=== PATIENT | male | born 1950 | race Caucasian/White ===

== ENCOUNTER → 2020-02-21 10:04 | Outpatient (CLI) | payer MEDICARE, SELFPAY ==
[2020-02-21 12:20] LABS: BUN Creatinine Ratio 16.7 (6-22); Blood Urea Nitrogen 16 mg/dL (9-20); Estimated Glomerular Filt Rate > 60.0 mL/min (>60)
[2020-02-21 13:37] LABS: Add Manual Diff / Slide Review NO; Basophils Absolute Auto 0 /uL (0-100); Basophils Percent Auto 0.2 % (0-2); Eosinophils Absolute Auto 100 /uL (0-450); Eosinophils Percent Auto 1.2 % (2-4); Hematocrit 49.3 % (41-53); Hemoglobin 16.4 g/dL (13.5-17.5); Lymphocytes Absolute Auto 1400 /uL (1100-4500); Lymphocytes Percent Auto 20.9 % (25-40); Mean Corpuscular HGB Conc 33.2 % (30-36); Mean Corpuscular Hemoglobin 30.1 PG (26-34); Mean Corpuscular Volume 90.6 fL (80-100); Monocytes Absolute Auto 600 /uL (0-900); Monocytes Percent Auto 9.2 % (3-14); Neutrophils Absolute Auto 4600 /uL (1500-7000); Neutrophils Percent Auto 68.5 % (50-75); Platelet Count 368 X10^3/uL (150-400); Red Blood Cell Count 5.44 X10^6/uL (4.5-5.9); Red Cell Distribution Width 14.3 % (11.6-14.8); White Blood Cell Count 6.7 X10^3/uL (4.5-11.0)
[2020-02-21 14:18] LABS: Alanine Aminotransferase 61 IU/L (<50); Albumin 4.8 g/dL (3.5-5.0); Albumin Globulin Ratio 1.7 (1.0-2.8); Alkaline Phosphatase 64 U/L (38-126); Aspartate Aminotransferase 44 IU/L (17-59); Bilirubin Total 0.9 mg/dL (0.2-1.3); Blood Urea Nitrogen 15 mg/dL (9-20); Calcium 9.3 mg/dL (8.4-10.2); Carbon Dioxide 26 mmol/L (22-32); Chloride 100 mmol/L (98-107); Estimated Glomerular Filt Rate > 60.0 mL/min (>60); Globulin 2.8 g/dL (1.7-4.1); Glucose 102 mg/dL (80-110); HEMOLYSIS < 15 (0-50); Lipase 208 U/L (23-300); Sodium 136 mmol/L (137-145); Total Protein 7.6 g/dL (6.3-8.2)
[2020-02-21 14:28] LABS: Clostridium Difficile Tox PCR Negative for C. diff
[2020-02-23 13:18] LABS: Fats, Neutral Normal (.); Fats, Total Normal (.)
== END ==
PROVIDERS: Referring Provider Internal Medicine; Visit Provider Internal Medicine
DX: R10.10 Upper abdominal pain, unspecified (principal); R63.4 Abnormal weight loss; R19.4 Change in bowel habit; R19.7 Diarrhea, unspecified
CPT/HCPCS: 36415; 80053; 82565; 82705; 83690; 84520; 85025; 87045; 87177; 87205; 87329; 87493; 87899

== ENCOUNTER → 2020-02-21 12:24 | Outpatient (CLI) | payer MEDICARE, SELFPAY ==
--- NOTE | 2020-02-21 | DI.CT.S_ITS ---
PROCEDURE: CT ABDOMEN PELVIS W CON INDICATIONS: Upper abdominal pain, unspecified TECHNIQUE: After the administration of oral and intravenous contrast, 5 mm thick sections acquired from the diaphragms to the symphysis. 5 mm thick coronal and sagittal reformats were performed. For radiation dose reduction, the following was used: automated exposure control, adjustment of mA and/or kV according to patient size. COMPARISON: None. FINDINGS: Image quality: Excellent. ABDOMEN: Lung bases: Lung bases are clear. Heart size is normal. Solid organs: Liver is normal in size and enhancement. Gallbladder contains a gallstone. Biliary system is non-dilated. Pancreas enhances normally. Spleen is normal in size and enhancement. No adrenal nodules. Kidneys are normal in size and enhancement, without hydronephrosis. Peritoneum and bowel: Stomach, small bowel, and colon loops are normal in caliber and wall thickness. No free fluid or air. Nodes and vessels: No retroperitoneal or mesenteric adenopathy. Aorta and inferior vena cava are normal in caliber. Miscellaneous: No ventral hernias. PELVIS: Genitourinary: Bladder is mildly distended. Bladder wall thickness is normal. Miscellaneous: No inguinal hernias or adenopathy. Bones: No suspicious bony lesions. No vertebral body compression fractures. Degenerative changes are noted in lumbar spine. IMPRESSION: 1. Cholelithiasis. No CT findings to suggest acute cholecystitis. 2. Dictated by: Everett Branch M.D. on 02/21/2020 at 17:16 Approved by: Everett Branch M.D. on 02/21/2020 at 18:24
== END ==
PROVIDERS: Referring Provider Internal Medicine; Visit Provider Internal Medicine
DX: R10.10 Upper abdominal pain, unspecified (principal); R19.4 Change in bowel habit; R63.4 Abnormal weight loss; R19.7 Diarrhea, unspecified; K80.20 Calculus of gallbladder without cholecystitis without obstruction; N32.89 Other specified disorders of bladder; M47.816 Spondylosis without myelopathy or radiculopathy, lumbar region
CPT/HCPCS: 36415; 74177; 80053; 82565; 82705; 83690; 84520; 85025; 87045; 87177; 87205; 87329; 87493; 87899; Q9967

== ENCOUNTER 2023-09-26 17:06 | Emergency (ER) | payer MEDICARE, SELFPAY ==
[2023-09-26 17:11] VITALS: BP 118/78; PULSE 90; RESP 18; TEMP 37.2; O2SAT 98; BMI 26.6
--- NOTE | 2023-09-26 17:16 | DI.RAD.S_ITS ---
PROCEDURE: XR SHOULDER RT MIN 2V INDICATIONS: fall/pain TECHNIQUE: 3 views of the shoulder were acquired. COMPARISON: None. FINDINGS: Bones: No fractures or dislocations. The distal right clavicle is absent. No suspicious bony lesions. Visualized ribs appear intact. Age-appropriate bony degenerative changes are seen. Soft tissues: No suspicious soft tissue calcifications. IMPRESSION: No acute bony abnormality is seen by plain film. If it would be helpful for clinical management decision making, please consider a dedicated, scheduled shoulder MRI for further evaluation (assuming that there is no contraindication). Presumed prior postoperative change of the right distal clavicle, with resection. Dictated by: Wayne Elizabeth M.D. on 09/26/2023 at 16:47 Approved by: Wayne Elizabeth M.D. on 09/26/2023 at 16:48
--- NOTE | 2023-09-26 17:28 | ED.UPPEXIN ---
HPI - Extremity Injury (Upper) <Patti Rick PA-C - Last Filed: 09/26/23 18:19> General Chief Complaint: Extremity Injury, Upper Stated Complaint: injured right shoulder pain Time Seen by Provider: 09/26/23 17:09 Source: patient Mode of arrival: Ambulatory History of Present Illness HPI narrative: Patient is a 73-year-old male presenting for evaluation of right shoulder pain after he fell while hiking. He reports he had his hand in his pocket he fell forward and took the brunt of the force on his right shoulder. He notes a previous coracoplasty surgery for torn labrum on his right shoulder 15 years ago in [place]. He states that after that surgery he felt his shoulder had not quite been the same with some limited range of motion with abduction and flexion, but after the fall today, he reports difficulty flexing his right shoulder and abducting his right shoulder more than a few degrees. He reports pain in his anterior right deltoid He reports less pain with right shoulder extension. He denies any tingling or numbness in his right hand. 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 He reports increased pain with external rotation against resistance. 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 He denies any anticoagulants use or any trauma to his head. Related Data Allergies Allergy/AdvReac Type Severity Reaction Status Date / Time No Known Drug Allergies Allergy Verified 09/26/23 17:11 Review of Systems <Patti Rick PA-C - Last Filed: 09/26/23 18:19> Review of Systems Narrative: See HPI Patient History <Patti Rick PA-C - Last Filed: 09/26/23 18:19> Social History Smoking Status: Never smoker Smoking Status: Never smoker alcohol intake frequency: holidays/special occasions only Substance Use Type: does not use Exam <Patti Rick PA-C - Last Filed: 09/26/23 18:19> Initial Vital Signs Initial Vital Signs: Vital Signs Temperature 98.9 F 09/26/23 17:11 Pulse Rate 90 09/26/23 17:11 Respiratory Rate 18 09/26/23 17:11 Blood Pressure 118/78 09/26/23 17:11 Pulse Oximetry 98 09/26/23 17:11 Oxygen Delivery Method Room Air 09/26/23 17:11 GENERAL: 73 year old patient appears stated age. Well-developed patient, in no acute distress. HEAD: Atraumatic. Normocephalic. EYES: Pupils equal round No scleral icterus. No injection or drainage. NECK: Trachea midline, supple RESPIRATORY: Speaking comfortably normal tone of voice without any increased work of breathing. EXTREMITIES: No bruising or abrasion of skin noted over right anterior shoulder, right clavicle is intact, no deformity palpated, patient is quite tender just lateral to biceps tendon over anterior deltoid at head of humerus. He tolerates passive flexion of his right shoulder up to just over 90?, but can not actively flex his right shoulder more than a couple of degrees. He can not abduct his right shoulder more than a few degrees. He demonstrates intact right shoulder active extension. 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 He demonstrates pronation against resistance with 5/5 strength, he demonstrates 5/5 strength with elbow flexion and extension against resistance. He demonstrates decreased strength with right elbow external rotation, but has 5/5 strength with no pain with internal rotation against resistance. Right radialis pulse 2 +, sensation intact over patient's hand BACK: Nontender without deformity or crepitance. Nontender to palpation of right scapula. NEURO: AOx3. SKIN: No rash or erythema of visible areas <Ashanti Gupta DO - Last Filed: 09/26/23 18:46> Initial Vital Signs Initial Vital Signs: Vital Signs Temperature 98.9 F 09/26/23 17:11 Pulse Rate 90 09/26/23 17:11 Respiratory Rate 18 09/26/23 17:11 Blood Pressure 118/78 09/26/23 17:11 Pulse Oximetry 98 09/26/23 17:11 Oxygen Delivery Method Room Air 09/26/23 17:11 Course <Patti Rick PA-C - Last Filed: 09/26/23 18:19> Orders Ordered: ED Orders 09/26/23 17:16 XR shoulder RT min 2V Stat Vital Signs Vital signs: Vital Signs - 8 hr 09/26/23 17:11 Temperature 98.9 F Pulse Rate 90 Respiratory Rate 18 Blood Pressure 118/78 Pulse Oximetry 98 Oxygen Delivery Method Room Air <Ashanti Gupta DO - Last Filed: 09/26/23 18:46> Orders Ordered: ED Orders 09/26/23 17:16 XR shoulder RT min 2V Stat Vital Signs Vital signs: Vital Signs - 8 hr 09/26/23 17:11 Temperature 98.9 F Pulse Rate 90 Respiratory Rate 18 Blood Pressure 118/78 Pulse Oximetry 98 Oxygen Delivery Method Room Air MDM - Extremity Injury (Upper) <Patti Rick PA-C - Last Filed: 09/26/23 18:19> Imaging Data XR Shoulder Rt: Radiologist's Impression: PROCEDURE: XR SHOULDER RT MIN 2V INDICATIONS: fall/pain TECHNIQUE: 3 views of the shoulder were acquired. COMPARISON: None. FINDINGS: Bones: No fractures or dislocations. The distal right clavicle is absent. No suspicious bony lesions. Visualized ribs appear intact. Age-appropriate bony degenerative changes are seen. Soft tissues: No suspicious soft tissue calcifications. IMPRESSION: No acute bony abnormality is seen by plain film. If it would be helpful for clinical management decision making, please consider a dedicated, scheduled shoulder MRI for further evaluation (assuming that there is no contraindication). Presumed prior postoperative change of the right distal clavicle, with resection. Dictated by: Wayne Elizabeth M.D. on 09/26/2023 at 16:47 Approved by: Wayne Elizabeth M.D. on 09/26/2023 at 16:48 [facility] Narrative Medical decision making narrative: Patient is a 73-year-old male presenting for evaluation after fall onto his right shoulder. 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 He denies hitting his head and denies any anticoagulant use. Multiple etiologies for patient's symptoms considered including, but not limited to: Humeral head fracture, shoulder dislocation, rotator tear Imaging reviewed: X-ray shows no evidence of fracture or dislocation. Patient's history and physical exam is consistent with rotator cuff tear of his right shoulder. I recommend further follow up with Orthopedic. He has been provided with a sling for his shoulder and advised to take it out of the sling as needed with gentle motions to reduce risk of developing a frozen shoulder. Recommend he rest right shoulder and apply ice. Patient defers pain medication at this time and will plan to take ibuprofen at night. Discussed with patient that MRI is not necessitated at this time, but it is very important for him to follow up with Orthopedic for additional imaging and evaluation. Findings and discharge diagnosis discussed with patient/family followed by verbalization of understanding Return precautions discussed with patient/family whom verbalize understanding of diagnosis and plan Discharge Plan Departure Patient Disposition: Home Clinical Impression: Rotator cuff injury Qualifiers: Encounter type: initial encounter Laterality: right Qualified Code(s): S46.001A - Unspecified injury of muscle(s) and tendon(s) of the rotator cuff of right shoulder, initial encounter Activity Restrictions/Additional Instructions: Thank you for coming in today for your care. Your symptoms and physical exam are consistent with a rotator cuff tear in your right shoulder. I recommend that you use a sling as needed for comfort, but if able, you may take your right arm out of the sling and allow gentle motion in order to reduce risk of developing frozen shoulder. You may treat with ibuprofen and Tylenol, apply ice and rest your right shoulder. I recommend that you follow up with Orthopedic for further imaging, evaluation and treatment. You may call [facility] at [phone] for an appointment or any orthopedic of your choice, and let them know that you were seen in the ER. *Return to Emergency Department if you should have any new, worsening or concerning symptoms, such as new onset numbness in your right hand, significant increase in pain, fever or other concerning signs or symptoms. Referrals: Miscellaneous,Doctor, [Primary Care Provider] - Stand Alone Forms: Patient Portal/API ED Sign-out <Ashanti Gupta DO - Last Filed: 09/26/23 18:46> Cosign ED Attending Denis Attestation: I was immediately available in the department for consultation.
== END 2023-09-26 18:40 | disposition home or self-care (01) ==
PROVIDERS: Emergency Provider Physician Assistant
DX: S46.001A Unspecified injury of muscle(s) and tendon(s) of the rotator cuff of right shoulder, initial encounter (principal); W18.30XA Fall on same level, unspecified, initial encounter
CPT/HCPCS: 73030; 99281; 99283

== ENCOUNTER → 2023-10-01 19:35 | Outpatient (CLI) | payer MEDICARE, SELFPAY ==
--- NOTE | 2023-10-01 | DI.MRI.S_ITS ---
PROCEDURE: MR SHOULDER RT WO CON INDICATIONS: cuff tear or rupture of right shoulder TECHNIQUE: Noncontrast oblique coronal T2 fast spin echo with fat saturation, oblique sagittal T1 spin echo and T2 fast spin echo with fat saturation, axial T1 spin echo and T2 fast spin echo with fat saturation through the shoulder. COMPARISON: [facility], CR, XR SHOULDER RT MIN 2V, 09/26/2023, 17:21. FINDINGS: Image quality: Nearly nondiagnostic due to motion artifact Rotator cuff: Bulk: There is atrophy of the teres minor mild atrophy of the infraspinatus and supraspinatus Teres minor: Nonspecific atrophy. The tendon appears attached Supraspinatus: Full-thickness rupture. There is evidence of prior rotator cuff repair. There is edema in the muscle belly Infraspinatus: Full-thickness nearly full width rupture. There is evidence of muscular edema Subscapularis: Moderate tendinopathy Bones and bursae: GH joint: Moderate degenerative changes. There is moderate joint effusion AC joint: Postsurgical changes Humeral head: Superior migration. Prior rotator cuff repair Scapula and acromion: Intact Bursa: Joint fluid extends to the bursa Capsule: Labrum: Circumferential attenuation, not well evaluated on this study. Long head biceps tendon: Intact IGHL: Moderate edema nonspecific Rotator interval: Effaced with edema Soft tissues: No axillary adenopathy. Lungs are not well seen. IMPRESSION: Full-thickness tears of the supraspinatus and infraspinatus, either acute or acute on chronic, with muscular edema. There is nonspecific atrophy of the teres minor in particular Prior rotator cuff repair sequelae. Moderate glenohumeral degenerative changes. Glenohumeral effusion extends to the bursa. There is superior migration of the humeral head. Nearly nondiagnostic MRI however due to motion artifact. Dictated by: Antonio Wallis M.D. on 10/02/2023 at 10:32 Approved by: Antonio Wallis M.D. on 10/02/2023 at 10:37
== END ==
PROVIDERS: Referring Provider Physician Assistant Medical; Visit Provider Physician Assistant Medical
DX: M75.121 Complete rotator cuff tear or rupture of right shoulder, not specified as traumatic (principal); M25.411 Effusion, right shoulder
CPT/HCPCS: 73221

== ENCOUNTER → 2024-02-19 15:29 | Outpatient (CLI) | payer MEDICARE, SELFPAY ==
--- NOTE | 2024-02-19 15:44 | EKG_ITS ---
[address] [address] Test Date: 2024-02-19 Pat Name: Reji Angeles Department: [facility] Room: Gender: Male Design Agent: GARRISON : 1950 Requested By: Order Number: [id number] Reading MD: Justin Mcdonough Measurements Intervals [place] Rate: 79 P: 68 GA: 182 QRS: 64 QRSD: 114 T: 28 QT: 392 QTc: 449 Interpretive Statements Normal sinus rhythm Possible Inferior infarct , age undetermined Electronically Signed On 02-22-2024 15:20:13 PDT by Justin Mcdonough
[2024-02-19 16:37] LABS: Add Manual Diff / Slide Review NO; Basophils Absolute Auto 0 /uL (0-100); Basophils Percent Auto 0.6 % (0-2); Eosinophils Absolute Auto 300 /uL (0-450); Eosinophils Percent Auto 4.1 % (2-4); Hematocrit 47.1 % (41-53); Hemoglobin 15.7 g/dL (13.5-17.5); Lymphocytes Absolute Auto 2500 /uL (1100-4500); Lymphocytes Percent Auto 38.6 % (25-40); Mean Corpuscular HGB Conc 33.4 % (30-36); Mean Corpuscular Hemoglobin 29.9 PG (26-34); Mean Corpuscular Volume 89.5 fL (80-100); Monocytes Absolute Auto 600 /uL (0-900); Monocytes Percent Auto 9.2 % (3-14); Neutrophils Absolute Auto 3000 /uL (1500-7000); Neutrophils Percent Auto 47.5 % (50-75); Platelet Count 275 X10^3/uL (150-400); Red Blood Cell Count 5.26 X10^6/uL (4.5-5.9); Red Cell Distribution Width 13.3 % (11.6-14.8); White Blood Cell Count 6.4 X10^3/uL (4.5-11.0)
[2024-02-19 16:42] LABS: BUN Creatinine Ratio 28.3 (6-22); Blood Urea Nitrogen 26 mg/dL (9-20); Calcium 9.1 mg/dL (8.4-10.2); Carbon Dioxide 27 mmol/L (22-32); Chloride 102 mmol/L (98-107); Estimated Glomerular Filt Rate > 60 mL/min (>60); Glucose 108 mg/dL (80-110); HEMOLYSIS 18 (0-50); Potassium 4.7 mmol/L (3.4-5.1); Sodium 136 mmol/L (137-145)
== END ==
PROVIDERS: Referring Provider Orthopaedic Surgery; Visit Provider Orthopaedic Surgery
DX: Z01.818 Encounter for other preprocedural examination (principal); Z01.812 Encounter for preprocedural laboratory examination
CPT/HCPCS: 36415; 80048; 85025; 93005

== ENCOUNTER → 2024-02-22 16:06 | Outpatient (CLI) | payer MEDICARE, SELFPAY ==
--- NOTE | 2024-02-22 16:08 | DI.CT.S_ITS ---
PROCEDURE: CT UE RT WO CON INDICATIONS: ROTATOR CUFF ARTHROPATHY TECHNIQUE: Noncontrast 0.75 mm thick sections acquired from the acromioclavicular joint to the inferior scapula, with coronal and sagittal reformatting. COMPARISON: [facility], MR, MR SHOULDER RT WO CON, 10/01/2023, 20:15. [facility], CR, XR SHOULDER 1 VIEW RIGHT, 10/05/2023, 14:09. FINDINGS: Image quality: Excellent. Bones: There is likely postsurgical widening of acromioclavicular joint . Postsurgical changes also seen in lateral humeral head near rotator cuff tendon insertion. Moderate glenohumeral joint osteoarthritic changes are seen with joint space narrowing, subchondral sclerosis and marginal osteophyte formation. Superior migration of humeral head in relation to glenoid is noted with near complete loss of subacromial space consistent with MR finding of full-thickness rotator cuff tendon rupture. No acute fracture or dislocation. No suspicious bony lesions. The included portion of right ribs are intact. Soft tissues: There is full-thickness rupture of distal supraspinatus and infraspinatus at their insertion on the humeral head with medial retraction of torn tendon fibers better evaluated on previous MR study. Moderate joint effusion, no calcified intra-articular loose bodies. No abnormal soft tissue calcifications. Sagittal images shows no significant rotator cuff muscle atrophy. The visualized right lung field is clear. There is no axillary lymphadenopathy by size criteria. IMPRESSION: 1. Postsurgical changes from prior rotator cuff tendon repair and postsurgical widening of acromioclavicular joint. No acute fracture or dislocation. No suspicious bony lesions. 2. Superior migration of humeral head in relation to glenoid and complete loss of subacromial space. Suggestion of full-thickness rotator cuff tendon rupture better evaluated on previous MRI study. No significant rotator cuff muscle atrophy. 3. Moderate joint effusion and subacromial subdeltoid bursal fluid. No calcified intra-articular loose bodies. No abnormal soft tissue calcifications. Dictated by: Ridge Kitchen M.D. on 02/22/2024 at 18:04 Approved by: Ridge Kitchen M.D. on 02/22/2024 at 18:13
== END ==
LOC: CT 16:07
PROVIDERS: Referring Provider Orthopaedic Surgery; Visit Provider Orthopaedic Surgery
DX: M12.811 Other specific arthropathies, not elsewhere classified, right shoulder (principal); M25.411 Effusion, right shoulder
CPT/HCPCS: 73200

== ENCOUNTER 2024-03-31 06:13 | Day surgery (SDC) | payer MEDICARE, SELFPAY ==
[2024-03-23 08:35] VITALS: BMI 26.6
--- NOTE | 2024-03-31 | DI.RAD.S_ITS ---
PROCEDURE: XR SHOULDER RT 1V INDICATIONS: POST OP TECHNIQUE: 1 views of the shoulder were acquired. COMPARISON: [facility], CR, XR SHOULDER RT MIN 2V, 09/26/2023, 17:21. FINDINGS: Bones: Total right shoulder arthroplasty in good position. Postprocedural soft tissue air noted. No fracture or hardware failure. Soft tissues: No suspicious soft tissue calcifications. IMPRESSION: Total right shoulder arthroplasty in good position. Approved by: Km Pang M.D. on 03/31/2024 at 14:37
[2024-03-31 06:54] VITALS: BP 115/80; PULSE 88; RESP 16; TEMP 36.6; O2SAT 98; BMI 26.6
[2024-03-31] MEDS: LACTATED RINGERS 1,000 ML 42 ML IV (07:09)
--- NOTE | 2024-03-31 07:34 | PM.PREOP ---
Pre-operative Note Interval Note History & Physical reviewed/Exam performed by Physician: Yes Changes to H&P: No
[2024-03-31] MEDS: CEFAZOLIN 2 GM/100 ML PREMIX 100 ML IV (07:50)
[2024-03-31] MEDS: TRANEXAMIC ACID 1,000 MG VIAL 2000 MG INJ ×2 (07:54→09:02)
[2024-03-31] MEDS: ACETAMINOPHEN IV 1,000 MG/100 ML VIAL 400 MG IV (08:00)
--- NOTE | 2024-03-31 08:18 | SUR.OPER ---
Beach chair with skytron shoulder positioner. Lower body on padded OR bed. Head in foam padded head cradle, secured with straps. Non-operative arm secured <90 degrees abduction. Pillow under knees. Safety belt at thigh. Cloth tape over blanket over lower legs.
[2024-03-31] MEDS: ROPIVACAINE/EPI/CLONIDINE/KET 50 ML SYRINGE INJ (08:29)
[2024-03-31 09:40] VITALS: BP 108/77; PULSE 94; RESP 9; TEMP 36.8; O2SAT 94
[2024-03-31 09:45] VITALS: BP 111/77; PULSE 96; RESP 16; O2SAT 98
[2024-03-31 09:50] VITALS: BP 114/77; PULSE 98; RESP 16; O2SAT 98
[2024-03-31 09:55] VITALS: BP 126/85; PULSE 99; RESP 16; TEMP 36.8; O2SAT 98
[2024-03-31] MEDS: OXYCODONE IR 5 MG TABLET PO (09:59)
--- NOTE | 2024-03-31 15:33 | P.OP_ITS ---
Operative Date/Time/Diagnoses Date of procedure: 03/31/24 Time of procedure: 15:33 Pre-op diagnosis: Right rotator cuff arthropathy Post-op diagnosis: same Procedure & Clinicians Procedure: Right reverse total shoulder arthroplasty Same procedure as scheduled: Yes Indications: Indications: This is a 73-year-old male who has rotator cuff arthropathy. Symptoms have been present for years, insidious onset. Patient has failed a reasonable attempt at conservative therapy. After extensive discussion in clinic, they wished to go forward with surgery. Risks and benefits were described including the risk of infection, bleeding, damage to internal structures including nerves. We also discussed the risk of failure of surgery and the need for revision surgery as well as the risk of anesthesia. The patient expressed understanding with these risks and wished to go forward with surgery. Surgeon: Gorge Ramsay Operative Notes Findings: Findings: Osteoarthritis of the glenoid and humeral head as well as a defient rotator cuff as noted on preoperative imaging and under direct visualization Specimen(s): none sent Prosthetic devices, grafts, tissues, transplants, or devices: Tornier implants Base plate: standard 25 mm, full wedge Glenosphere: 39 mm Stem: Perform 3+ Poly: +3 retentive Estimated Blood Loss (mL): 100 Blood products transfused: none Procedure in detail: Patient was seen in the preoperative holding unit. The correct right shoulder was identified and marked with my initials. Again we discussed the risks and benefits of surgery and they wished to go forward with surgery. The patient was brought back to the operating room and placed supine on the operating table. Smooth endotracheal intubation was performed by anesthesia. All prominences were padded and they were placed into the beach chair position. Intravenous antibiotics were given. The right shoulder was then prepped with the standard sterile preparation and draping. A time-out was then performed in my initials were again identified on the correct shoulder. 1 g of IV tranexamic acid was given. A standard deltopectoral incision was made. Skin flaps were made. The cephalic vein was identified and retracted laterally. This was protected throughout the remainder of the case. Sharp dissection was made along the deltoid, subacromial and subcoracoid space to release adhesions. The conjoined tendon was identified and the axillary nerve was palpated and continuous using the tug test. It was protected throughout the remainder of the case. A brown retractor was placed underneath the deltoid muscle and a darach retractor underneath the conjoint tendon. The subscapularis muscle was ntoed to be intact. The anterior circumflex artery and associated veins on the lower border of the subscapularis were identified and tied off using 0-Vicryl. The biceps tendon was identified in the bicipital groove. This was released from its sheath, and taken from its origin on the glenoid and tied into the pectoralis tendon for a solid tenodesis. We then began a subscapularis peel. The subscapularis was tagged with an Ethibond suture. A 360 degree circumferential release of the subscapularis was performed with protection of the axillary nerve. The coracohumeral ligament was released at the base of the coracoid. The shoulder was then dislocated. Osteophytes were removed using combination of rongeur and osteotome. The rotator cuff was noted to be insufficient. An intramedullary guide was used set at version of 20?. Using an oscillating saw a conservative humeral head cut was made. Impaction reamers were reamed up to a size 3 stem with a built-in angle 135?. A neck protector was placed. Attention was then turned to the glenoid. After retracting the humeral head posteriorly a circumferential release was performed of the capsule with protection of the axillary nerve. The labrum was then released starting at the biceps anchor and going around the rim a small amount of triceps was released from the inferior glenoid. A center guide pin was then placed using the guide, followed by Reamer. After adequate cartilage was removed the boss was reamed and the centeral hole was drilled and measured. The base plate was then implanted and screwed into place. The peripheral screws were then sequentially drilled, measured, and placed. A 39 glenosphere was then selected and screwed into place onto the base plate. Turning back to the humerus, the humeral head was delivered and trialed with a +3 constrained. The arm was taken through range of motion and this was felt to be stable. The trial was then removed and a dilute Betadine wash was then performed with 1 L of sterile saline. Before placing the final implant, drill holes were made in the bicipital groove for the subscapularis repair, and sutures were passed through the drill holes. The final stem was then impacted into the humerus. The shoulder was then reduced and again brought through range of motion and was felt to be stable. The subscapularis was then repaired using a modified racking hitch with nice loupes. The skin was closed with 2-0 vicryl and 3-0 Monocryl followed by Aquacel dressing. Patient was awoken from anesthesia and brought back to the postoperative recovery unit without issue. They were placed into a sling. Assisting participation: This operation could not have been safely performed (without compromising the technical results or length of the procedure) without the assistance of a skilled surgical appliance fitter. The surgical appliance fitter was medically necessary for proper positioning, retraction and manipulation of instruments, proper exposure, graft prep, and manipulation of tissue. Complications: none Post-operative Condition: stable Disposition: PACU Plan for aftercare: Postoperative instructions: Sling to remain on for 6 weeks. No external rotation past neutral for 6 weeks. Okay for the sling to come off for shower. Okay to shower over the Aquacel dressing. If any water gets underneath the dressing, remove the dressing. First postoperative visit in 2 weeks.
== END 2024-03-31 10:35 | disposition home or self-care (01) ==
PROVIDERS: Referring Provider Orthopaedic Surgery; Visit Provider Orthopaedic Surgery
PROC: (CPT 23472; principal; 2024-03-31 07:45)
DX: M12.811 Other specific arthropathies, not elsewhere classified, right shoulder (principal); M25.711 Osteophyte, right shoulder
CPT/HCPCS: 23472; 73020; C1776; J0134; J0330; J0690; J1171; J1885; J2250; J2405; J2704; J3010